=== PATIENT | female | born 1960 ===

== ENCOUNTER 2017-09-23 07:24 | Outpatient (CLI) | payer OTHER | END 2017-09-23 07:26 | disposition home or self-care (01) | LOC: SONOGRAMA 07:24 | DX: E04.1 Nontoxic single thyroid nodule (principal) ==

== ENCOUNTER 2018-04-01 08:53 | Emergency (ER) | payer OTHER ==
[~2018-04-01] VITALS: Ht 160 cm; Wt 78.5 kg
== END 2018-04-01 13:12 | disposition home or self-care (01) ==
LOC: ER 08:53
DX: K62.5 Hemorrhage of anus and rectum (principal)